=== PATIENT | female | born 1970 | race Caucasian/White ===

== ENCOUNTER 2017-11-01 16:59 | Emergency (ER) | payer MEDICAID, SELFPAY ==
[2017-11-01 17:01] VITALS: BP 132/84; PULSE 90; PULSE 98; RESP 18; TEMP 36.9; O2SAT 97; BMI 25.7
[2017-11-01 17:11] VITALS: BMI 25.7
--- NOTE | 2017-11-01 17:13 | XR_ITS ---
XR chest portable HISTORY: ITS.REASON: chest pain ORDERING PHYSICIAN: Kati Richards MD PATIENT AGE: 47 years COMPARISON: To 717 FINDINGS: The cardiomediastinal silhouette and pulmonary vascularity are within normal limits. The lungs are clear without infiltrates, suspicious nodules, or pleural effusions. No acute bony abnormalities. IMPRESSION: Negative chest, no acute finding
[2017-11-01 17:25] LABS: Basophils # 0.1 K/mm3 (0-0.2); Basophils % 0.8 % (0.1-2.0); Eosinophils # 0.1 K/mm3 (0.0-0.4); Eosinophils % 1.4 % (0.1-12.0); Hematocrit 45.7 % (37.0-47.0); Hemoglobin 15.6 g/dL (12.2-16.2); Lymphocytes # 2.8 K/mm3 (0.7-4.5); Lymphocytes % 26.8 K/mm3 (10-50); Mean Corpuscular HGB Conc 34.1 g/dL (31.8-35.4); Mean Corpuscular Hemoglobin 31.4 pg (27.0-31.2); Mean Corpuscular Volume 92.1 fl (81-99); Mean Platelet Volume 7.5 fl (7.4-10.4); Monocytes # 0.6 K/mm3 (0.1-1.0); Monocytes % 6.2 % (1.7-9.3); Neutrophils # 6.7 K/mm3 (1.8-7.8); Neutrophils % 64.8 % (37.0-80.0); Platelet Count 385 K/mm3 (142-424); Red Blood Count 4.97 M/mm3 (4.20-5.40); Red Cell Distribution Width 12.2 % (11.5-17.5); White Blood Count 10.4 K/mm3 (4.8-10.8)
--- NOTE | 2017-11-01 17:33 | HMH.EDGENADL ---
ED Disposition Clinical Impression: Atypical chest pain Disposition: Home, Self-Care Condition on Discharge: Good Instructions: DI for Atypical Chest Pain Additional Instructions: See Dr. Rodriguez for follow up in one to two days. - Critical Care Critical Care Time: No Attestation: On , the high probability of a clinically significant, sudden or life threatening deterioration of the following system(s) required my full and direct attention, intervention and personal management. The time I documented below is in addition to time spent performing reported procedures but includes the following listed in this critical care notation. Medical Decision Making Vital Signs: 11/01/17 17:01 11/01/17 17:46 Temperature 98.5 F Temperature Source Oral Pulse Rate 98 H Pulse Rate [Right Brachial] 90 84 Respiratory Rate 18 16 Blood Pressure [Right Arm] 132/84 107/72 Blood Pressure Mean [Right Arm] 100 83 Blood Pressure Source [Right Arm] Automatic Cuff Automatic Cuff Blood Pressure Position [Right Arm] Supine Supine 02 Sat by Pulse Oximetry 97 97 Oxygen Delivery Method Room Air Room Air - Lab Data Lab Results 11/01/17 17:20: Sodium 141, Potassium 3.5, Chloride 103, Carbon Dioxide 27, Anion Gap 14.5, BUN 15, Creatinine 1.03 H, Estimated Creat Clear 74, Estimated GFR 58 L, Est GFR ( Amer) 70, Glucose 66 L, Calcium 9.0, Total Bilirubin 0.4, AST 19, ALT 32, Alkaline Phosphatase 69, Total Creatine Kinase 225 H, CK-MB (CK-2) 1.1, CK-MB (CK-2) Rel Index 0.5, Troponin I < 0.02, Total Protein 8.5 H, Albumin 4.4, Globulin 4.1 H, Albumin/Globulin Ratio 1.1 11/01/17 18:55: Troponin I < 0.02 11/01/17 : WBC 10.4, RBC 4.97, Hgb 15.6, Hct 45.7, MCV 92.1, MCH 31.4 H, MCHC 34.1, RDW 12.2, Plt Count 385, MPV 7.5, Neut % (Auto) 64.8, Lymph % (Auto) 26.8, Dade % (Auto) 6.2, Eos % (Auto) 1.4, Baso % (Auto) 0.8, Neut # (Auto) 6.7, Lymph # (Auto) 2.8, [place] # (Auto) 0.6, Eos # (Auto) 0.1, Baso # (Auto) 0.1 11/01/17 : Influenza Type A Ag Negative, Influenza Type B Ag Negative Result diagrams: 11/01/17 Unknown 11/01/17 17:20 Orders (Tests/Meds): ED MEDICATIONS Discontinued Medications Generic Name Dose Route Start Last Admin Trade Name Freq PRN Reason Stop Dose Admin Ondansetron HCl 4 mg 11/01/17 19:49 11/01/17 19:52 Zofran 4mg/2ml Vial IV 11/01/17 19:50 4 mg ONCE ONE Administration ORDERS Category Date Time Status Chest XR -- portable [XR chest portable] Stat Exams 11/01/17 17:13 Taken EKG Request [ECG Request by /Petra] Stat Y 11/01/17 17:14 Ordered - Radiology Data #1 Image(s): Chest Image Reviewed: Yes I reviewed the patient's radiology image Preliminary Findings: Normal/NAD, No Infiltrates Seen, Normal Lung Inflation Cortez - ECG Data Tracing #1 I reviewed this ECG and interpreted as documented below: ECG initial impression date: 11/01/17 ECG initial impression time: 17:05 ECG normal with no acute: arrhythmias, ischemia, conduction abnormalities, chamber hypertrophy - Ricci Inquiry Pt receiving controlled substance: No Medical Decision Making Narrative: Second troponin normal; stable at d/c General Adult HPI - General Chief complaint: Chest Pain Stated complaint: chest pain Time Seen by Provider: 11/01/17 17:30 Mode of Arrival: EMS Limitations: No Limitations Description of Symptoms (Recalled from ER Triage Doc. by RN): Pt had flu like symptoms and was en route to [facility] and began to sweat and have left arm pain and chest tightness radiatig to the neck and shoulders. Pt called 911 - History of Present Illness HPI narrative: Patient states that she awoke this morning with flu symptoms. She had fever myalgias and diaphoresis. Currently experienced some substernal chest pain and went to the [facility]. At that point she was having left upper extremity left lower extremity neck and shoulder cramping as well as diaphoresis. Her syncope or palpitations. She
--- NOTE | 2017-11-01 17:36 | ED_ITS ---
ED Disposition Clinical Impression: Atypical chest pain Disposition: Home, Self-Care Condition on Discharge: Good Instructions: DI for Atypical Chest Pain Additional Instructions: See Dr. Rodriguez for follow up in one to two days. - Critical Care Critical Care Time: No Attestation: On , the high probability of a clinically significant, sudden or life threatening deterioration of the following system(s) required my full and direct attention, intervention and personal management. The time I documented below is in addition to time spent performing reported procedures but includes the following listed in this critical care notation. Medical Decision Making Vital Signs: 11/01/17 17:01 11/01/17 17:46 Temperature 98.5 F Temperature Source Oral Pulse Rate 98 H Pulse Rate [Right Brachial] 90 84 Respiratory Rate 18 16 Blood Pressure [Right Arm] 132/84 107/72 Blood Pressure Mean [Right Arm] 100 83 Blood Pressure Source [Right Arm] Automatic Cuff Automatic Cuff Blood Pressure Position [Right Arm] Supine Supine 02 Sat by Pulse Oximetry 97 97 Oxygen Delivery Method Room Air Room Air - Lab Data Lab Results 11/01/17 17:20: Sodium 141, Potassium 3.5, Chloride 103, Carbon Dioxide 27, Anion Gap 14.5, BUN 15, Creatinine 1.03 H, Estimated Creat Clear 74, Estimated GFR 58 L, Est GFR ( Amer) 70, Glucose 66 L, Calcium 9.0, Total Bilirubin 0.4, AST 19, ALT 32, Alkaline Phosphatase 69, Total Creatine Kinase 225 H, CK- MB (CK-2) 1.1, CK-MB (CK-2) Rel Index 0.5, Troponin I < 0.02, Total Protein 8.5 H, Albumin 4.4, Globulin 4.1 H, Albumin/Globulin Ratio 1.1 11/01/17 18:55: Troponin I < 0.02 11/01/17 : WBC 10.4, RBC 4.97, Hgb 15.6, Hct 45.7, MCV 92.1, MCH 31.4 H, MCHC 34.1, RDW 12.2, Plt Count 385, MPV 7.5, Neut % (Auto) 64.8, Lymph % (Auto) 26.8 , [place] % (Auto) 6.2, Eos % (Auto) 1.4, Baso % (Auto) 0.8, Neut # (Auto) 6.7, Lymph # (Auto) 2.8, [place] # (Auto) 0.6, Eos # (Auto) 0.1, Baso # (Auto) 0.1 11/01/17 : Influenza Type A Ag Negative, Influenza Type B Ag Negative Result diagrams: 11/01/17 Unknown 11/01/17 17:20 Orders (Tests/Meds): ED MEDICATIONS Discontinued Medications Generic Name Dose Route Start Last Admin Trade Name Freq PRN Reason Stop Dose Admin Ondansetron HCl 4 mg 11/01/17 19:49 11/01/17 19:52 Zofran 4mg/2ml Vial IV 11/01/17 19:50 4 mg ONCE ONE Administration ORDERS Category Date Time Status Chest XR -- portable [XR chest portable] Stat Exams 11/01/17 17:13 Taken EKG Request [ECG Request by /Petra] Stat Y 11/01/17 17:14 Ordered - Radiology Data #1 Image(s): Chest Image Reviewed: Yes I reviewed the patient's radiology image Preliminary Findings: Normal/NAD, No Infiltrates Seen, Normal Lung Inflation Cortez - ECG Data Tracing #1 I reviewed this ECG and interpreted as documented below: ECG initial impression date: 11/01/17 ECG initial impression time: 17:05 ECG normal with no acute: arrhythmias, ischemia, conduction abnormalities, chamber hypertrophy - Ricci Inquiry Pt receiving controlled substance: No Medical Decision Making Narrative: Second troponin normal; stable at d/c General Adult HPI - General Chief complaint: Chest Pain Stated complaint: chest pain Time Seen by Provider: 11/01/17 17:30 Mode of Arrival: EMS Limitations: No Limitation
--- NOTE | 2017-11-01 17:42 | PC.NURSE ---
FLU SWAB OBTAINED AND SENT TO LAB VIA TUBE SYSTEM
[2017-11-01 17:46] VITALS: BP 107/72; PULSE 84; RESP 16; O2SAT 97
[2017-11-01 17:50] LABS: Anion Gap 14.5 mEq/L (5-15); Blood Urea Nitrogen 15 mg/dL (7-18); CKMB Relative Index 0.5 U/L (0-4.0); Carbon Dioxide 27 mmol/L (21.0-32.0); Chloride 103 mmol/L (98-107); Creatine Kinase 225 U/L (26-192); Creatine Kinase MB 1.1 mg/ml (0.0-3.6); Creatinine,Serum 1.03 mg/dL (0.55-1.02); Potassium 3.5 mmoL/L (3.5-5.1); Sodium 141 mmol/L (136-145); Troponin I < 0.02 ng/ml (0.00-0.06)
[2017-11-01 17:51] LABS: Alanine Aminotransferase 32 U/L (12-78); Albumin Level 4.4 gm/dL (3.4-5.0); Albumin/Globulin Ratio 1.1 (1.1-1.8); Alkaline Phosphatase 69 U/L (46-116); Aspartate Amino Transferase 19 U/L (15-37); Bilirubin,Total 0.4 mg/dL (0.2-1.0); Creatinine Clearance Estimated 74 mL/min (0-300); Estimated Glomerular Filt Rate 58 ml/min (>60); GFR (African American) 70 ML/MIN (>60); Globulin 4.1 gm/dl (1.3-3.2); Glucose 66 mg/dL (74-106); Total Protein,Serum 8.5 gm/dL (6.4-8.2)
[2017-11-01 19:47] LABS: Troponin I < 0.02 ng/ml (0.00-0.06)
== END 2017-11-01 20:06 | disposition home or self-care (01) ==
PROVIDERS: Emergency Provider Emergency Medicine; Family Provider Emergency Medicine; PCP Emergency Medicine
DX: R07.89 Other chest pain (principal); R50.9 Fever, unspecified; I10 Essential (primary) hypertension; F17.210 Nicotine dependence, cigarettes, uncomplicated
CPT/HCPCS: 71045; 80053; 82550; 82553; 84484; 85025; 87275; 87276; 93005; 93041; 96374; 99283; J2405

== ENCOUNTER → 2017-11-23 11:24 | Outpatient (CLI) | payer MEDICAID, SELFPAY ==
[2017-11-23 11:55] LABS: Anion Gap 9.2 mEq/L (5-15); Blood Urea Nitrogen 10 mg/dL (7-18); Carbon Dioxide 30 mmol/L (21.0-32.0); Chloride 106 mmol/L (98-107); Estimated Glomerular Filt Rate 78 ml/min (>60); GFR (African American) 94 ML/MIN (>60); Glucose 94 mg/dL (74-106); Potassium 4.2 mmoL/L (3.5-5.1); Sodium 141 mmol/L (136-145)
[2017-11-23 12:11] LABS: Basophils % 0.5 % (0.1-2.0); Eosinophils # 0.2 K/mm3 (0.0-0.4); Eosinophils % 3.1 % (0.1-12.0); Hematocrit 36.3 % (37.0-47.0); Hemoglobin 12.4 g/dL (12.2-16.2); Lymphocytes # 2.5 K/mm3 (0.7-4.5); Lymphocytes % 37.6 K/mm3 (10-50); Mean Corpuscular HGB Conc 34.2 g/dL (31.8-35.4); Mean Corpuscular Hemoglobin 31.1 pg (27.0-31.2); Mean Corpuscular Volume 91.1 fl (81-99); Monocytes # 0.3 K/mm3 (0.1-1.0); Neutrophils # 3.6 K/mm3 (1.8-7.8); Neutrophils % 54.7 % (37.0-80.0); Platelet Count 297 K/mm3 (142-424); Red Blood Count 3.99 M/mm3 (4.20-5.40); Red Cell Distribution Width 12.1 % (11.5-17.5); White Blood Count 6.6 K/mm3 (4.8-10.8)
[2017-11-23 13:24] LABS: Chol/HDL Ratio 3.5 (1-3.5); Cholesterol 185 mg/dL (140-200); Free T4 (Free Thyroxine) 0.85 ng/dl (0.76-1.46); HDL Cholesterol 53 mg/dL (29-89); LDL Cholesterol 109 mg/dL (0-130); Thyroid Stimulating Hormone 0.48 uIU/ml (0.358-3.740); Triglycerides 116 mg/dL (30-200); VLDL Cholesterol 23 mg/dL (0-40)
[2017-11-23 16:04] LABS: Hemoglobin A1C 5.3 % (0.0-7.0)
[2017-11-24 17:27] LABS: Vitamin D 25 Hydroxy 15.2 ng/mL (30.0-100.0)
== END ==
PROVIDERS: Internal Medicine Cardiovascular Disease; Visit Provider Nurse Practitioner Family
DX: R06.00 Dyspnea, unspecified (principal); I20.8 Other forms of angina pectoris; E78.5 Hyperlipidemia, unspecified; F17.200 Nicotine dependence, unspecified, uncomplicated; Z82.49 Family history of ischemic heart disease and other diseases of the circulatory system; I10 Essential (primary) hypertension; R53.83 Other fatigue
CPT/HCPCS: 36415; 80048; 80061; 82652; 83036; 84439; 84443; 85025

== ENCOUNTER 2017-12-05 07:31 | Day surgery (SDC) | payer MEDICAID, SELFPAY ==
[2017-12-05] VITALS (14 sets, daily range): BP systolic 91–115; BP diastolic 52–64; PULSE 53–78; RESP 18–20; TEMP 36.7; O2SAT 95–98; BMI 28.5
--- NOTE | 2017-12-05 | IR_ITS ---
CARDIAC CATHETERIZATION DATE OF CATHETERIZATION:12/05/2017 8:24 AM PROCEDURES: 1. Left heart catheterization 2. Left ventriculogram 3. Selective coronary angiogram INDICATION FOR TEST: 1. Progressive angina pectoris 2. Recurrent visits to the emergency room or angina 3. Strong family history of coronary artery disease 4. Numerous risk factors for coronary artery disease Informed consent was obtained prior to the procedure. COMPLICATIONS: None ESTIMATED BLOOD LOSS: Less than 10 ml. TECHNIQUE: One percent lidocaine used to anesthetize the right anterior aspect of the wrist. The right radial artery was accessed via the Seldinger technique. A 6 Pakistani sheath was placed in the right radial artery. 2.5 mg of verapamil, 800 mcg of nitroglycerin and 5000 U Heparin were given through the arterial sheath. The trap catheter was also used to perform left heart catheterization and left ventriculography. At the end of the procedure the patient was transferred to the post-op holding area in stable condition for arterial sheath removal. ANGIOGRAPHIC RESULTS: 1. The left main artery has an ostial smooth 20% stenosis and a mid vessel 20% stenosis 2. The left anterior descending artery is proximally normal and then has a 30% smooth stenosis immediately adjacent to a first septal oil expert with remaining vessel normal 3. The circumflex artery is a dominant vessel and normal 4. The right coronary artery nondominant yet still large and normal 5. The MORENO ventriculogram reveals normal 65% 6. The left ventricular end-diastolic pressure 15 mmHg IMPRESSION: 1. Mild nonflow limiting coronary artery disease 2. Normal ejection fraction 3. Normal mildly elevated LVEDP PLAN: 1. Tobacco cessation 2. Treatment of endothelial dysfunction 3. Risk factor modification with a goal LDL less than 55
--- NOTE | 2017-12-05 08:10 | CA_ITS ---
PROCEDURE: 2-D M-mode and color Doppler study INDICATIONS FOR THE TEST: Chest pain X COPD Heart Murmur Tobacco SmokingX Palpitations Fatigue Syncope Edema Hypertension Diabetes Mellitus Rheumatic Fever SOBXDOE Obesity Hyperlipidemia Family History HD Additional History PATIENT INFORMATION HEIGHT: 64 WEIGHT:166 GENDER: Female B/P:65/60 2-D/M-MODE INTERPRETATION: 2-D MEASUREMENTS OBSERVED VALUES IN CMS Right Ventricular Dimension (RVDd) 1.7 Interventricular Septum (Thickness)(IVsd) .9 Left Ventricular Internal Dimensions(LVIDd) 5.1 Left Ventricular Posterior Wall (Thickness)(LVPWd) 1.1 Aortic Root 2.6 Aortic Cusp Separation 1.6 Left Atrial Dimensions (LAD) 3.1 2D 1. Left atrium is mildly enlarged, left ventricle is normal size, there is no concentric left ventricular hypertrophy, visually estimated ejection fraction 55% with no obvious regional wall motion abnormality. 2. The right atrium and right ventricle are mildly enlarged with normal contractility. 3. The aortic valve is minimally thickened and fibrosed. 4. The mitral and tricuspid valvular grossly normal. 5. The pulmonic valve is poorly visualized 6. No significant pericardial effusion noted. DOPPLER INTERROGATION: Doppler interrogation of the aortic, mitral and tricuspid valvular presence of mild mitral and tricuspid regurgitation, tricuspid regurgitant jet velocity is insufficient for calculation of the right ventricular systolic pressure, diastolic parameters are inconclusive. CONCLUSION: 1. Mildly enlarged left atrium, normal left ventricular size, visually estimated ejection fraction 55% with no obvious regional wall motion abnormality, diastolic parameters are inconclusive. 2. Mildly enlarged right ventricle with normal contractility. 3. Mild mitral and tricuspid regurgitation 4. No significant pericardial effusion noted.
[2017-12-05 08:11] LABS: Basophils # 0.1 K/mm3 (0-0.2); Basophils % 0.7 % (0.1-2.0); Eosinophils # 0.4 K/mm3 (0.0-0.4); Eosinophils % 3.5 % (0.1-12.0); Lymphocytes # 3.1 K/mm3 (0.7-4.5); Lymphocytes % 30.1 K/mm3 (10-50); Mean Corpuscular HGB Conc 34.1 g/dL (31.8-35.4); Mean Corpuscular Hemoglobin 31.4 pg (27.0-31.2); Mean Corpuscular Volume 92.1 fl (81-99); Mean Platelet Volume 7.1 fl (7.4-10.4); Monocytes # 0.4 K/mm3 (0.1-1.0); Monocytes % 3.9 % (1.7-9.3); Neutrophils # 6.4 K/mm3 (1.8-7.8); Neutrophils % 61.7 % (37.0-80.0); Platelet Count 333 K/mm3 (142-424); Red Blood Count 4.12 M/mm3 (4.20-5.40); Red Cell Distribution Width 12.1 % (11.5-17.5); White Blood Count 10.4 K/mm3 (4.8-10.8)
[2017-12-05 08:15] LABS: Anion Gap 10.8 mEq/L (5-15); Blood Urea Nitrogen 10 mg/dL (7-18); Carbon Dioxide 29 mmol/L (21.0-32.0); Chloride 105 mmol/L (98-107); Creatinine Clearance Estimated 111 mL/min (0-300); Creatinine,Serum 0.76 mg/dL (0.55-1.02); Estimated Glomerular Filt Rate 82 ml/min (>60); GFR (African American) 100 ML/MIN (>60); Glucose 100 mg/dL (74-106); Potassium 3.8 mmoL/L (3.5-5.1); Sodium 141 mmol/L (136-145)
== END 2017-12-05 12:41 | disposition home or self-care (01) ==
LOC: CATHLAB 07:32
PROVIDERS: Family Provider Emergency Medicine; PCP Emergency Medicine; Visit Provider Internal Medicine
DX: I20.9 Angina pectoris, unspecified (principal); Z82.49 Family history of ischemic heart disease and other diseases of the circulatory system; I10 Essential (primary) hypertension; E78.5 Hyperlipidemia, unspecified; R06.02 Shortness of breath; R06.00 Dyspnea, unspecified; R06.01 Orthopnea; F17.200 Nicotine dependence, unspecified, uncomplicated; Z83.3 Family history of diabetes mellitus; Z82.3 Family history of stroke
CPT/HCPCS: 80048; 85025; 93306; 93458; 99152; C1725; C1769; J1644; Q9967

== ENCOUNTER → 2021-01-01 15:45 | Outpatient (CLI) | payer BC, SELFPAY ==
--- NOTE | 2021-01-01 15:47 | MM_ITS ---
PROCEDURE: MM DIG SCREENING MAMM BI W/CAD Digital Breast Tomosynthesis Included CLINICAL INDICATION: SCREENING There is a history of breast cancer patient's mother diagnosed at age 52 COMPARISON: MG DMDXUL DIG MAMM-DX UNI-LT from 11/06/2014 MG DMSB DIG MAMM-SCREEN PATRICK W/CAD from 03/06/2017 MG DMDXUL DIG MAMM-DX UNI-LT W/CAD from 09/07/2017 TECHNIQUE: Standard CC and MLO images and 3D Tomosynthesis was obtained. R2 CAD reviewed. FINDINGS: Mild diffuse fibroglandular densities are seen throughout breasts. There a couple of benign-appearing microcalcifications breast. Is no suspicious lesion seen no suspicious microcalcifications. IMPRESSION: Mild diffuse breast density suspicious lesions BI-RAD Category: 2 Benign Finding(s) FOLLOW-UP: 1YR 1 Year Follow-up (A letter has been sent to the patient regarding results of the study.) Dictated by: Dr. Biju Ruvalcaba MD 01/08/2021 07:37 Dr. Biju Ruvalcaba MD in [place] 01/08/2021 07:37
== END ==
PROVIDERS: PCP Family Medicine Adult Medicine; Visit Provider Family Medicine Adult Medicine
DX: Z12.31 Encounter for screening mammogram for malignant neoplasm of breast (principal)
CPT/HCPCS: 77063; 77067

== ENCOUNTER → 2021-02-01 14:26 | Outpatient (CLI) | payer BC, SELFPAY ==
[2021-02-01 16:42] LABS: Ferritin 43.2 ng/ml (6.24-137)
== END ==
PROVIDERS: Visit Provider Nurse Practitioner Family
DX: E83.10 Disorder of iron metabolism, unspecified (principal); G25.81 Restless legs syndrome
CPT/HCPCS: 36415; 82728

== ENCOUNTER → 2021-02-24 13:51 | Outpatient (CLI) | payer BC, SELFPAY ==
--- NOTE | 2021-02-24 13:53 | US_ITS ---
PROCEDURE: US KIDNEY CLINICAL INDICATION: GROSS HEMATURIA COMPARISON: No exams were available for comparison FINDINGS: The right kidney is 10 x 5 x 6 cm. No hydronephrosis, cortical thinning, or renal mass or perinephric fluid collection is evident. The left kidney is 10 x 5 x 5 cm. No hydronephrosis, cortical thinning, or renal mass or perinephric fluid collection is evident. IMPRESSION: Unremarkable bilateral renal ultrasound Dictated by: Howard Sweet MD 02/24/2021 17:22 Howard Sweet MD in [facility] 02/24/2021 17:22
== END ==
PROVIDERS: PCP Family Medicine Adult Medicine; Visit Provider Nurse Practitioner Family
DX: R31.0 Gross hematuria (principal); R30.0 Dysuria
CPT/HCPCS: 76770

== ENCOUNTER → 2021-03-02 08:09 | Outpatient (CLI) | payer BC, SELFPAY | PROVIDERS: Visit Provider Nurse Practitioner Family | DX: Z01.812 Encounter for preprocedural laboratory examination (principal); Z20.822 Contact with and (suspected) exposure to COVID-19 | CPT/HCPCS: U0003 ==

== ENCOUNTER → 2021-03-04 19:50 | Outpatient (CLI) | payer BC, SELFPAY | PROVIDERS: Visit Provider Nurse Practitioner Family | DX: G47.30 Sleep apnea, unspecified (principal); R06.83 Snoring; F19.11 Other psychoactive substance abuse, in remission | CPT/HCPCS: 95810 ==

== ENCOUNTER → 2021-04-08 09:54 | Outpatient (CLI) | payer BC, SELFPAY | PROVIDERS: PCP Nurse Practitioner Family; Visit Provider Nurse Practitioner Family | DX: M54.31 Sciatica, right side (principal) ==

== ENCOUNTER → 2021-05-24 08:26 | Outpatient (CLI) | payer BC, SELFPAY ==
[2021-05-24 09:16] LABS: Basophils # 0.1 K/mm3 (0-0.2); Eosinophils # 0.1 K/mm3 (0.0-0.4); Eosinophils % 1.6 % (0.1-12.0); Hematocrit 37.6 % (37.0-47.0); Lymphocytes # 2.2 K/mm3 (0.7-4.5); Lymphocytes % 41.1 % (10-50); Mean Corpuscular HGB Conc 34.7 g/dL (31.8-35.4); Mean Corpuscular Hemoglobin 31.2 pg (27.0-31.2); Mean Corpuscular Volume 89.8 fl (81-99); Mean Platelet Volume 7.8 fl (7.4-10.4); Monocytes # 0.3 K/mm3 (0.1-1.0); Neutrophils # 2.8 K/mm3 (1.8-7.8); Neutrophils % 51.3 % (37.0-80.0); Platelet Count 353 K/mm3 (142-424); Red Blood Count 4.18 M/mm3 (4.20-5.40); Red Cell Distribution Width 13.2 % (11.5-17.5); White Blood Count 5.4 K/mm3 (4.8-10.8)
[2021-05-24 09:41] LABS: Total Iron Binding Capacity 298 ug/dL (265-497)
[2021-05-24 10:04] LABS: Thyroid Stimulating Hormone 0.24 uIU/mL (0.465-4.68)
[2021-05-24 10:39] LABS: Vitamin B12 453 pg/mL (239-931)
== END ==
PROVIDERS: Visit Provider Specialist
DX: D64.9 Anemia, unspecified (principal); I10 Essential (primary) hypertension; Z20.822 Contact with and (suspected) exposure to COVID-19
CPT/HCPCS: 36415; 82607; 82746; 83550; 84443; 85025; U0003

== ENCOUNTER 2021-05-26 07:46 | Day surgery (SDC) | payer BC, SELFPAY ==
[2021-05-03 14:07] VITALS: BMI 36.0
[2021-05-26 08:10] VITALS: BP 176/98; PULSE 99; RESP 18; TEMP 36.1; O2SAT 96
--- NOTE | 2021-05-26 08:12 | P.PN_ITS ---
[facility] Anesthesia Checklist - Patient Identification Patient Identification: Arm Band - Structural Data Admitted From: Home Planned Operative Procedure/s: Colonoscopy Consent for Planned Operative Procedure(s) Verified: Yes - Airway Assessment C-Spine Mobility Assessed: Yes TMJ Mobility Assessed: Yes Dentition: Poor Dentition - Neurological Assessment Level of Consciousness: Awake Hx Seizures: No Numbness or tingling in extremities: No - Anesthesia Plan Anesthesia Risk discussed: Yes Anesthesia Plan: Verified ASA Class: III Anesthesia Type: MAC [facility] History I have reviewed the patient's past medical history: Yes Medical History: Reports:: Anxiety, Asthma, Depression, Gastroesophageal Reflux Disease(GERD), Hypertension, Migraine, Palpitations Denies:: Cancer, Diabetes Mellitus Type 1, Diabetes Mellitus Type 2, Internal Pacemaker, MRSA, Seizures *Have you ever received a pneumonia vaccine?: Yes *Have you received a flu vaccine this season?: No Other Medical History: Reports: Fibromyalgia Anesthesia experience/problems:: None Laterality Cases: Right: Total Hip Replacement Other Surgeries: Yes: No Previous Surgery, Appendectomy, Cardiac Catheterization, Cholecystectomy, Colonoscopy, , Tubal Ligation, Other. No: Pacemaker Amputation: No Fractures: Yes (HIP) - *Social History Last grade of school completed: Some college Smoking Status: Former smoker # Packs/Day (cigarettes): 1 Alcohol Intake: never Alcohol Intake Frequency:: other Substance Use Type: former substance user, marijuana, heroin, crack/cocaine *Occupational Status:: employed Housing: house Household Members: none *Travel in the last 8 weeks: None - Psychiatric History Pschychiatric History:: Reports:: Anxiety, Depression Family Hx:: Stroke, Heart Attack, Diabetes, Cancer, Hypertension, Hyperlipidemia, Asthma, Coronary Artery Disease
[2021-05-26 08:43] LABS: HCG Qualitative, Serum Negative (Negative)
[2021-05-26 08:49] VITALS: O2SAT 96
--- NOTE | 2021-05-26 09:28 | P.PCN_ITS ---
- Procedure: Date: 05/26/21 Patient Date of :: 1970 Procedure Performed:: Total colonoscopy to terminal ileum with polypectomy by biopsy and snare Indications:: Patient is a 51-year-old female on Suboxone referred by Princess Guo from [facility] for colonoscopy. She states that she was undergoing routine evaluation was found to have reportedly evidence of iron deficiency anemia. She denies any obvious rectal bleeding. She has had prior colonoscopy about 10 years ago. I do have record of prior colonoscopy in [address] Melo at this institution. Patient describes symptoms of nausea and constipation. She states that she often goes 10 days without a bowel movement. She does state that she has had multiple surgeries for adhesions and scar tissue. She had seen neurology for her sleep apnea who advocated a colonoscopy as well. Performing Provider:: Florentino Zepeda MD Referring Provider:: Princess Guo Sedation:: MAC sedation Procedure:: Patient was taken to endoscopy procedure room. She was positioned in lateral decubitus position. Adequate intravenous sedation was achieved with anesthesia titration of propofol. Digital examination was performed which was unremarkable. Variable stiffness Olympus colonoscope was inserted via the anus. Was advanced to the cecum with some minimal difficulty due to floppiness and redundancy of the sigmoid colon. Colonic preparation was fair but adequate visualization was achieved with irrigation and suctioning. Ileocecal valve and appendiceal orifice were identified. Colonoscope was advanced short distance into the terminal ileum which appeared grossly normal. Colonoscope was slowly withdrawn through the colon. She did require irrigation and suctioning to allow for decent visualization. Near the hepatic flexure there was a possible early diminutive polyp removed with cold biopsy forceps. In the descending colon there was a diminutive polyp removed with cold biopsy forceps. In the rectosigmoid region there were several small hyperplastic appearing polyps which were removed with cold biopsy forceps. In the rectum there was a sessile small polyp removed with cold cutting snare. Retroflexion within the rectum revealed nonbleeding internal hemorrhoids. Colonoscope was withdrawn. Findings:: Fair colonic preparation Diminutive polyps as noted above Nonbleeding internal hemorrhoids Recommendations:: No source on colonoscopic evaluation to explain iron deficiency anemia. This may be metabolic/dietary. Consideration could be given for upper endoscopy if felt to be indicated. Recommend repeat colonoscopy 3 to 5 years pending pathology Complications:: None immediately apparent Estimated blood obtained (mL): 2
[2021-05-26 09:31] VITALS: BP 132/86; PULSE 84; RESP 16; TEMP 36.7; O2SAT 94
[2021-05-26 09:41] VITALS: BP 143/79; PULSE 84; RESP 16; O2SAT 98
[2021-05-26 09:51] VITALS: BP 138/86; PULSE 74; RESP 16; O2SAT 98
[2021-05-26 10:01] VITALS: BP 137/82; PULSE 70; RESP 16; O2SAT 95
== END 2021-05-26 10:01 | disposition home or self-care (01) ==
LOC: OUTP 07:47
PROVIDERS: PCP Nurse Practitioner Family; Visit Provider Surgery
PROC: 0DJD8ZZ Inspection of Lower Intestinal Tract, Via Natural or Artificial Opening Endoscopic (ICD-10-PCS; CPT 45380; principal; 2021-05-26 09:00)
DX: K63.5 Polyp of colon (principal); K64.0 First degree hemorrhoids; F41.9 Anxiety disorder, unspecified; J45.909 Unspecified asthma, uncomplicated; F32.9 Major depressive disorder, single episode, unspecified; K21.9 Gastro-esophageal reflux disease without esophagitis; I10 Essential (primary) hypertension; G43.909 Migraine, unspecified, not intractable, without status migrainosus; R00.2 Palpitations; Z87.891 Personal history of nicotine dependence; Z88.8 Allergy status to other drugs, medicaments and biological substances; Z79.899 Other long term (current) drug therapy
CPT/HCPCS: 45380; 84703; J2704

== ENCOUNTER → 2021-05-27 10:39 | Outpatient (POV) | payer BC, SELFPAY ==
[2021-05-27 11:04] VITALS: BP 172/90; PULSE 84; RESP 18; O2SAT 96; BMI 36.0
--- NOTE | 2021-05-27 11:39 | HMH.PMCON ---
Assessment and Plan (1) Low back pain Status: Chronic Qualifiers: Chronicity: chronic Back pain laterality: bilateral Category: Medical Code(s): M54.5 - Low back pain (2) Sacroiliitis Status: Chronic Category: Medical Code(s): M46.1 - Sacroiliitis, not elsewhere classified - Assessment and plan all Dx Assessment and Plan for all problems:: Low back pain/bilateral lower extremity pain?patient is tender to palpation to her bilateral SI joints with a positive Shane's, compression, distraction test. We will schedule her for bilateral SI joint injections to see if she gets relief. She has tried physical therapy, home stretching, and anti-inflammatories with no significant relief. If the patient does not get relief, we will schedule her for a lumbar epidural steroid injection at L5-S1. Per the patient's MRI report, L5-S1 does have a concentric disc bulge with a small posterior central canal protrusion, moderate articular facet disease. We will follow-up with patient after her injection to reevaluate symptoms. Risks and benefits of the procedure have been explained to the patient. Patient would like to proceed with the procedure. Possible side effects of corticosteroids have been discussed with the patient. Patient has been instructed to contact the clinic with any concerns before the next appointment. Dr. Lin has reviewed this note and agrees with this plan of care. This note was dictated using voice recognition software and make contain errors or omissions. HPI - Data of Consult Patient: new to practice Consult date: 05/27/21 Requesting Physician: Jagruti Byrne APRN Primary Care Provider: Princess Guo APRN - Consult Narrative Reason for consult: Low back pain, right leg pain History of present illness: Ms. Jones is a 51 year old female who presents today for consultation for low back pain with radiation into her bilateral lower extremities. Patient says that she has had pain in her low low back for many years. She did undergo hip replacement in 2008. She did have pain to her low back prior to her hip replacement, however, reports her pain improved somewhat after the surgery. Unfortunately, over time, the pain returned and progressively worsened. Today, she has pain in her low back with radiation into her bilateral buttock, bilateral legs, bilateral hips and groin. The pain is intermittently radiating into the bilateral feet and bilateral groin. She says that her pain is worse when she is sitting. She is tender to palpation to the area. Walking also worsens her pain. She does rate her pain a 7 out of 10. She has tried anti-inflammatories in the past with no relief. She has also tried physical therapy for greater than 6 weeks with no relief. She does have an MRI of her lumbar spine that was performed May 06, 2021. Patient has not gotten any significant relief with conservative therapies. She does continue with home stretching. CC: Jagruti Byrne APRN [facility] History I have reviewed the patient's past medical history: Yes Medical History: Reports:: Anxiety, Asthma, Depression, Gastroesophageal Reflux Disease(GERD), Hypertension, Migraine, Palpitations Denies:: Cancer, Diabetes Mellitus Type 1, Diabetes Mellitus Type 2, Internal Pacemaker, MRSA, Seizures *Have you ever received a pneumonia vaccine?: No *Have you received a flu vaccine this season?: No Other Medical History: Reports: Fibromyalgia Laterality Cases: Right: Total Hip Replacement Other Surgeries: Yes: No Previous Surgery, Appendectomy, Cardiac Catheterization, Cholecystectomy, Colonoscopy, , Tubal Ligation, Other. No: Pacemaker Amputation: No Fractures: Yes (HIP) - *Social History Smoking Status: Former smoker # Packs/Day (cigarettes): 1 Alcohol Intake: never Alcohol Intake Frequency:: other Substance Use Type: former substance user, marijuana, heroin, crack/cocaine *Occupational Status:: unemployed Housing: h
== END ==
PROVIDERS: PCP Nurse Practitioner Family; Visit Provider Clinical Nurse Specialist Family Health
DX: M54.5 Low back pain (principal); M46.1 Sacroiliitis, not elsewhere classified
CPT/HCPCS: 99202; G0463

== ENCOUNTER 2021-06-18 10:40 | Day surgery (SDC) | payer BC, SELFPAY ==
[2021-06-18 10:43] VITALS: BP 133/86; PULSE 75; RESP 18; TEMP 36.2; O2SAT 98; BMI 36.0
[2021-06-18 11:03] VITALS: BP 130/85; PULSE 82; RESP 18; O2SAT 98
[2021-06-18 11:10] VITALS: BP 153/90; PULSE 83; RESP 18; O2SAT 97
--- NOTE | 2021-06-18 11:47 | P.PCN_ITS ---
- Procedure Date: 06/18/21 Time: 11:48 Anesthesiologist:: Owen Lin MD Complications:: None Pre-procedure Diagnosis:: Sacroiliitis Post-procedure Diagnosis:: Same Indications for Procedure:: Patient is a pleasant 51-year-old white female who we are treating for bilateral hip pain. She is tender over both SI joints. She does have a positive Shane's test bilaterally. She is positive Aidee test bilaterally. She is positive SI joint compression test bilaterally. She has a positive distraction test bilaterally. We will do bilateral SI joint injections under fluoroscopy today t o help her with her pain symptoms. Procedure Details:: B/L SI joint injection under fluoroscopy Informed consent was obtained and the risks and benefits of the procedure was explained to the patient. The patient was taken to the procedure room and placed prone on the procedure table. The patient was prepped using ChloraPrep. The skin and subcutaneous tissues overlying the SI joints were anesthetized using lidocaine. I placed a 22-gauge needle first in the left SI joint and second in the right SI joint. Needle placement was confirmed with dye. After this we injected 5 mL bupivacaine 0.25% and Depo-Medrol 40 mg into each SI joint. Patient tolerated the procedure well with no complication. Plan and Disposition:: We will follow-up with her in 2 weeks. Will reevaluate symptoms at that time.
[2021-06-18 12:09] VITALS: BP 129/67; PULSE 83; RESP 18; TEMP 36.2; O2SAT 96
== END 2021-06-18 11:30 | disposition home or self-care (01) ==
LOC: SC.PAINP 10:42
PROVIDERS: PCP Nurse Practitioner Family; Visit Provider Anesthesiology
DX: M46.1 Sacroiliitis, not elsewhere classified (principal); G43.909 Migraine, unspecified, not intractable, without status migrainosus; I10 Essential (primary) hypertension; J45.909 Unspecified asthma, uncomplicated; K21.9 Gastro-esophageal reflux disease without esophagitis; M79.18 Myalgia, other site; F41.9 Anxiety disorder, unspecified; F32.9 Major depressive disorder, single episode, unspecified; Z87.891 Personal history of nicotine dependence
CPT/HCPCS: 27096; G0260; J1040; Q9966

== ENCOUNTER → 2021-07-15 14:11 | Outpatient (POV) | payer BC, SELFPAY ==
[2021-07-15 14:24] VITALS: BP 151/90; PULSE 80; RESP 18; O2SAT 97; BMI 35.2
--- NOTE | 2021-07-15 14:35 | HMH.PAINSOAP ---
[facility] Pain Management SOAP Note Subjective:: Patient is a 51-year-old white female who presents today for follow-up after bilateral SI joint injections. Patient is having pain in her low back with radiation into bilateral buttock, hips, groin, and legs. The pain does stop at the knees. Patient says she got minimal relief with her injections bilateral SI injections. She rates her pain a 7 out of 10 today. She says that she may have gotten 2 to 3 days of relief but the pain did return immediately. She got less than 50% relief when the injections were working. She has tried anti-inflammatories in the past with little relief. She has taken diclofenac. Patient is on Suboxone and is unable to take oral opiates. She has had imaging of her lumbar spine. Patient's pain has not relieved with physical therapy for more than 6 weeks or home stretching. She does continue using ice and heat therapies. The patient says she does not have pain that is worsened by leaning forward or with extension at waist. She does, however, have worsening pain with sitting for prolonged periods. She also has pain with heavy lifting. She does work long hours and says that this worsens her pain. Review of Systems General: No recent weight changes, no fever, no sleep disturbances Respiratory: No cough, no shortness of air, no recurring pulmonary infections Cardiovascular/peripheral vascular: No chest pain, no palpitations, no edema, no shortness of breath Gastrointestinal: No new onset incontinence, normal bowel movements reported Genitourinary: No new onset incontinence Musculoskeletal: Low back pain with radiation into bilateral buttock, groin, legs stopping at knee, worse with prolonged sitting Psychiatric: [Normal mood/affect] Neurological: [Denies weakness in extremities], [denies balance issues] Objective:: Physical exam General: Alert and oriented x3, no acute distress, pleasant and cooperative Lungs: Respirations even and unlabored, symmetrical chest expansion Eyes: PERRL Musculoskeletal: Flexion and extension of lumbar [spine] somewhat guarded secondary to pain, [antalgic gait noted] Neurological: Speech clear, no gross sensory deficit Assessment:: Degenerative disc disease lumbar spine with lumbar radiculopathy symptoms Plan:: We will schedule the patient for lumbar epidural steroid injection at L4-L5 area. She did try bilateral SI joint injections with minimal relief. She continues with home stretching and has undergone physical therapy for greater than 6 weeks. She did not get any relief. She has tried diclofenac. We did discuss changing to Celebrex to see if this gives her any relief. We will change the patient to Celebrex 200 mg 1 tablet p.o. daily. The patient is not on any anticoagulation therapy. She is not diabetic. This will be the patient's #1 lumbar epidural steroid injection at the L4-L5 area. Possible side effects of corticosteroids have been discussed with the patient. Risks and benefits of the procedure have been explained to the patient. Patient would like to proceed with the procedure. Patient has been instructed to contact the clinic with any concerns before the next appointment. Dr. Lin has reviewed this note and agrees with this plan of care. This note was dictated using voice recognition software and make contain errors or omissions. [facility] History I have reviewed the patient's past medical history: Yes Medical History: Reports:: Anxiety, Asthma, Depression, Gastroesophageal Reflux Disease(GERD), Hypertension, Migraine, Palpitations Denies:: Cancer, Diabetes Mellitus Type 1, Diabetes Mellitus Type 2, Internal Pacemaker, MRSA, Seizures *Have you ever received a pneumonia vaccine?: No *Have you received a flu vaccine this season?: No Other Medical History: Reports: Fibromyalgia Laterality Cases: Right: Total Hip Replacement Other Surgeries: Yes: No Previous Surgery, Appendectomy, Cardiac Catheterization, Chol
== END ==
PROVIDERS: Visit Provider Clinical Nurse Specialist Family Health
DX: M51.16 Intervertebral disc disorders with radiculopathy, lumbar region (principal)
CPT/HCPCS: 99212; G0463

== ENCOUNTER 2021-08-06 11:14 | Day surgery (SDC) | payer BC, SELFPAY ==
[2021-08-06 11:34] VITALS: BP 118/80; PULSE 75; RESP 18; TEMP 36.6; O2SAT 98; BMI 36.3
[2021-08-06 12:12] VITALS: BP 146/83; PULSE 81; RESP 18; O2SAT 98
[2021-08-06 12:13] VITALS: BP 144/80; PULSE 71; RESP 18; O2SAT 97
--- NOTE | 2021-08-06 12:14 | HMH.PMPROC ---
- Procedure Date: 08/06/21 Time: 12:14 Anesthesiologist:: Owen Lin MD Complications:: None Pre-procedure Diagnosis:: Degenerative disc disease of lumbar spine with lumbar radiculopathy symptoms Post-procedure Diagnosis:: Same Indications for Procedure:: Patient is a pleasant 51-year-old white female who we are treating for low back pain with lumbar radiculopathy symptoms. She did not get much relief from bilateral SI joint injections. We will do lumbar epidural steroid injection under fluoroscopy today to see if this gives her better relief of her low back pain bilateral hip pain and leg pain. Procedure Details:: Informed consent was obtained and the risk and benefits of the procedure was explained to the patient. The patient was taken to the procedure room. The patient was placed prone on the procedure table. The patient was prepped and draped in sterile fashion. C-arm fluoroscopy was used to view the lumbar spine. Skin and subcutaneous tissues were anesthetized using lidocaine. I placed an 18-gauge epidural needle and advanced into the L5-S1 interspace using fluoroscopic guidance and [id number] to air. After confirmation of needle placement in the epidural space with dye I injected 2 mL of lidocaine 1.5% with Depo-Medrol 80 mg. Patient tolerated the procedure well with no complications. Plan and Disposition:: We will follow-up with her in 2 weeks. Will reevaluate symptoms at that time.
[2021-08-06 12:25] VITALS: BP 133/89; PULSE 78; RESP 20; O2SAT 97
== END 2021-08-06 12:25 | disposition home or self-care (01) ==
LOC: SC.PAINP 11:15
PROVIDERS: PCP Nurse Practitioner Family; Visit Provider Anesthesiology
DX: M51.16 Intervertebral disc disorders with radiculopathy, lumbar region (principal); G43.909 Migraine, unspecified, not intractable, without status migrainosus; I10 Essential (primary) hypertension; J45.909 Unspecified asthma, uncomplicated; K21.9 Gastro-esophageal reflux disease without esophagitis; M79.18 Myalgia, other site; F32.9 Major depressive disorder, single episode, unspecified; F41.9 Anxiety disorder, unspecified; Z72.0 Tobacco use; E78.5 Hyperlipidemia, unspecified; Z88.8 Allergy status to other drugs, medicaments and biological substances
CPT/HCPCS: 62323; J1040; Q9966

== ENCOUNTER → 2021-09-02 11:32 | Outpatient (POV) | payer BC, SELFPAY ==
[2021-09-02 11:53] VITALS: BP 125/81; PULSE 89; RESP 18; O2SAT 96; BMI 36.0
--- NOTE | 2021-09-02 11:55 | HMH.PAINSOAP ---
[facility] Pain Management SOAP Note Subjective:: Patient is a 51-year-old white female who presents today for follow-up after a lumbar epidural steroid injection. The patient got minimal relief with the injection. She says for 3 days she had up to 20 to 30% relief but the pain did return. She has pain in her low back area with radiation into her hips and lower extremities bilaterally. She did try bilateral SI joint injections prior to the lumbar epidural steroid injection and got no relief. Patient is very tearful today. She is unable to stand, walk, or sit or lie down for prolonged periods. She has tried conservative therapies of physical therapy for more than 6 weeks and home stretching. She has tried anti-inflammatories with minimal relief. She is not an oral opiate candidate, as she is on buprenorphine. The patient is not a neurosurgical candidate at this point. She has tried all conservative therapies. She continues to have significant pain that is affecting her quality of life at this point. She would like to proceed with possible spinal cord stimulation trial. Review of Systems General: No recent weight changes, no fever, no sleep disturbances Respiratory: No cough, no shortness of air, no recurring pulmonary infections Cardiovascular/peripheral vascular: No chest pain, no palpitations, no edema, no shortness of breath Gastrointestinal: No new onset incontinence, normal bowel movements reported Genitourinary: No new onset incontinence Musculoskeletal: Low back pain with radiation into bilateral hips and legs Psychiatric: [Normal mood/affect] Neurological: [Denies weakness in extremities], [denies balance issues] Objective:: Physical exam General: Alert and oriented x3, no acute distress, pleasant and cooperative Lungs: Respirations even and unlabored, symmetrical chest expansion Eyes: PERRL Musculoskeletal: Flexion and extension of lumbar [spine] somewhat guarded secondary to pain, [antalgic gait noted] Neurological: Speech clear, no gross sensory deficit Assessment:: Degenerative disc disease lumbar spine with lumbar radiculopathy symptoms Plan:: Patient is following up after her lumbar epidural steroid injection. She got minimal relief. She has tried bilateral SI injections with minimal relief. She has tried physical therapy for more than 6 weeks along with continued home stretching and anti-inflammatories. She has not gotten any long-term relief with conservative therapies. Patient is not considered a neurosurgical candidate at this time. She is not a candidate for oral opiates, as she is on buprenorphine. She is very tearful today. We have discussed possible spinal cord stimulation. She would like to try this. We will schedule her for psychological evaluation for possible spinal cord stimulation. We will plan to see her back after her psychological evaluation and plan for trial if successful psychological evaluation. Patient has been instructed to contact the clinic with any concerns before the next appointment. Dr. Lin has reviewed this note and agrees with this plan of care. This note was dictated using voice recognition software and make contain errors or omissions. [facility] History I have reviewed the patient's past medical history: Yes Medical History: Reports:: Anxiety, Asthma, Coronary Artery Disease, Depression, Gastroesophageal Reflux Disease(GERD), Hypertension, Migraine, Palpitations Denies:: Cancer, Diabetes Mellitus Type 1, Diabetes Mellitus Type 2, Internal Pacemaker, MRSA, Seizures *Have you ever received a pneumonia vaccine?: No *Have you received a flu vaccine this season?: No Other Medical History: Reports: Fibromyalgia Laterality Cases: Right: Total Hip Replacement Other Surgeries: Yes: No Previous Surgery, Appendectomy, Cardiac Catheterization, Cholecystectomy, Colonoscopy, , Tubal Ligation, Other (laparoscopy for abd adheasions). No: Pacemaker Amputation: No Fractures
== END ==
PROVIDERS: Visit Provider Clinical Nurse Specialist Family Health
DX: M51.16 Intervertebral disc disorders with radiculopathy, lumbar region (principal)
CPT/HCPCS: 99212; G0463

== ENCOUNTER → 2021-12-27 09:06 | Outpatient (CLI) | payer BC, SELFPAY ==
[2021-12-27 09:54] LABS: Basophils # 0.1 K/mm3 (0-0.2); Basophils % 1.5 % (0.1-2.0); Eosinophils # 0.2 K/mm3 (0.0-0.4); Eosinophils % 1.7 % (0.1-12.0); Hematocrit 38.3 % (37.0-47.0); Hemoglobin 12.9 g/dL (12.2-16.2); Lymphocytes # 4.7 K/mm3 (0.7-4.5); Lymphocytes % 48.9 % (10-50); Mean Corpuscular HGB Conc 33.7 g/dL (31.8-35.4); Mean Corpuscular Hemoglobin 30.2 pg (27.0-31.2); Mean Corpuscular Volume 89.4 fl (81-99); Mean Platelet Volume 7.2 fl (7.4-10.4); Monocytes # 0.3 K/mm3 (0.1-1.0); Monocytes % 3.4 % (1.7-9.3); Neutrophils # 4.3 K/mm3 (1.8-7.8); Neutrophils % 44.5 % (37.0-80.0); Platelet Count 377 K/mm3 (142-424); Red Blood Count 4.28 M/mm3 (4.20-5.40); Red Cell Distribution Width 13.7 % (11.5-17.5); White Blood Count 9.6 K/mm3 (4.8-10.8)
[2021-12-27 17:26] LABS: Chloride 105 mmol/L (98-107); Potassium 4.2 mmoL/L (3.5-5.1); Sodium 139 mmol/L (136-145)
[2021-12-27 17:29] LABS: Anion Gap 12.2 mEq/L (5-15); Blood Urea Nitrogen 9 mg/dl (7-17); Carbon Dioxide 26 mmol/L (22.0-30.0); Estimated Glomerular Filt Rate 106 ml/min (>60); GFR (African American) 129 ML/MIN (>60); Glucose 102 mg/dl (74-100)
[2021-12-27 17:30] LABS: Calcium 8.2 mg/dl (8.4-10.2)
== END ==
PROVIDERS: Visit Provider Anesthesiology
DX: Z01.812 Encounter for preprocedural laboratory examination (principal); Z11.52 Encounter for screening for COVID-19; M51.36 Other intervertebral disc degeneration, lumbar region
CPT/HCPCS: 36415; 80048; 85025; C9803; U0003; U0005

== ENCOUNTER 2021-12-28 11:01 | Day surgery (SDC) | payer BC, SELFPAY ==
[2021-12-28] VITALS (8 sets, daily range): BP systolic 92–151; BP diastolic 56–83; PULSE 59–77; RESP 16–18; TEMP 36.2–36.6; O2SAT 96–98; BMI 36.0
[2021-12-28 06:32] LABS: HCG Qualitative, Serum Negative (Negative)
--- NOTE | 2021-12-28 15:46 | P.OP_ITS ---
Date of procedure: 12/28/21 Pre-op Diagnosis:: Degenerative disc disease of lumbar spine with lumbar radiculopathy symptoms Post-op Diagnosis:: Same Procedure performed:: Spinal cord stimulator trial with epidural lead placement x2 Surgeon:: Owen Lin MD PARKING CONTROL OFFICER:: Juve Jones Anesthesia: MAC Estimated blood loss (mL): 1 Clinical Note:: This patient is a pleasant 51-year-old white female who we are treating for low back pain with lumbar radiculopathy symptoms. Most of her pain is in the low back she does have some radicular symptoms. She has failed all previous conservative therapy including injections, oral medications, physical therapy and she is not an operative candidate. She has had a successful psychological evaluation. She presents for spinal cord stimulator trial today. Operative findings:: None Operative note:: Informed consent was obtained the risk and benefits of the procedure were explained to the patient. Patient was taken the operating room placed prone on the procedure table. She was prepped and draped in sterile fashion. C-arm fluoroscopy was used to view the lumbar spine. The skin and subcutaneous tissues were anesthetized using lidocaine. A 17-gauge epidural needle was inserted and advanced into the L1-L2 interspace. After confirmation needle placement in the epidural space stimulator lead was inserted and advanced very easily to the T7-T8-T9 vertebral body. A second needle was inserted advanced again into the L1-L2 interspace. Again after confirmation needle placement in the epidural space a second stimulating lead was inserted and advanced again very easily to the T7-T8-T9 vertebral body. Leads were checked in AP and lateral views. The leads were secured in place after removal of the stylets and needles. Patient was then taken recovery in stable condition. Patient tolerated the procedure well with no complications. Patient was programmed by the [employer] sales donor recruitment representative with good stimulation in all areas of pain. Patient was then discharged home neurologically intact with good relief of her pain symptoms. Plan and disposition: We will follow-up with this patient in 1 week for lead pull. We will continually follow-up with her each day and reprogram as needed. If she has any problems or questions she is to call us back in the pain clinic. Condition: stable Disposition: PACU Complications:: None
== END 2021-12-28 16:15 | disposition home or self-care (01) ==
LOC: OR 11:04
PROVIDERS: PCP Nurse Practitioner Family; Visit Provider Anesthesiology
PROC: (CPT 63650; principal; 2021-12-28 12:45)
DX: M51.16 Intervertebral disc disorders with radiculopathy, lumbar region (principal); E78.5 Hyperlipidemia, unspecified; I10 Essential (primary) hypertension; Z72.0 Tobacco use; Z82.49 Family history of ischemic heart disease and other diseases of the circulatory system; Z88.8 Allergy status to other drugs, medicaments and biological substances; Z79.899 Other long term (current) drug therapy
CPT/HCPCS: 63650; 84703; 96374; C1778

== ENCOUNTER → 2022-01-03 14:48 | Outpatient (POV) | payer BC, SELFPAY ==
[2022-01-03 14:57] VITALS: BP 121/76; PULSE 100; RESP 18; TEMP 36.4; O2SAT 96; BMI 36.0
--- NOTE | 2022-01-03 15:09 | HMH.PAINSOAP ---
[facility] Pain Management SOAP Note Subjective:: Patient is a pleasant 51-year-old female who presents today for a 1 week follow-up after her spinal cord stimulator trial. Patient is currently being treated for degenerative disc disease lumbar spine with lumbar radiculopathy symptoms. [employer] senior outside sales representative is here today to help with some evaluation and reprogramming. After trial, patient had significant relief about 80 to 90%. Patient reports no issues after the trial. Patient states that she was able to increase her activity during the trial. Patient has tried and failed conservative therapies such as oral medication, physical therapy, and at home exercise regimen 6 weeks. She is not an oral opiate candidate because she is on buprenorphine. She is also a nonsurgical candidate. Rates her pain today as 5 out of 10. ORT score is high Review of Systems: General: No recent weight changes, no fever, no sleep disturbances Respiratory: No cough, no shortness of air, no recurring pulmonary infections Cardiovascular/peripheral vascular: No chest pain, no palpitations, no edema, no shortness of breath Gastrointestinal: No new onset incontinence, normal bowel movements reported Genitourinary: No new onset incontinence Musculoskeletal: Low back pain Psychiatric: [Normal mood/affect] Neurological: [Denies weakness in extremities], [denies balance issues] Objective:: Physical Exam: General: Alert and oriented x3, no acute distress, pleasant and cooperative, [on room air] Lungs: Respirations even and unlabored, symmetrical chest expansion Eyes: PERRL Musculoskeletal: Flexion and extension of lumbar [spine] somewhat guarded secondary to pain, [antalgic gait noted] Neurological: Speech clear, no gross sensory deficit Assessment:: Degenerative disc disease of lumbar spine with lumbar radiculopathy symptoms Plan:: Patient had significant relief during her trial and was able to increase her activity. The [employer] senior outside sales representative says that she was able to reprogram and had good coverage. Patient denies any issues with the spinal cord stimulator. She says that she wants to think about whether she wants to move forward with a permanent placement. We will follow up with her in 1 week to see how she feels. Again, due to her history, we will not provide this patient with any oral opioid medications. Patient has been instructed to contact the clinic with any concerns before the next appointment. Dr. Lin has reviewed this note and agrees with this plan of care. This note was dictated using voice recognition software and make contain errors or omissions. [facility] History Medical History: Reports:: Anxiety, Asthma, Coronary Artery Disease, Depression, Gastroesophageal Reflux Disease(GERD), Hypertension, Migraine, Palpitations Denies:: Cancer, Diabetes Mellitus Type 1, Diabetes Mellitus Type 2, Internal Pacemaker, MRSA, Seizures *Have you ever received a pneumonia vaccine?: Yes *Have you received a flu vaccine this season?: Yes Other Medical History: Reports: Fibromyalgia. Denies: Blood Transfusion Reaction Laterality Cases: Right: Total Hip Replacement Other Surgeries: Yes: No Previous Surgery, Appendectomy, Cardiac Catheterization, Cholecystectomy, Colonoscopy, , Tubal Ligation, Other (laparoscopy for abd adheasions). No: Pacemaker Amputation: No Fractures: Yes (HIP) - *Social History Smoking Status: Never smoker # Packs/Day (cigarettes): 1 Alcohol Intake: never Alcohol Intake Frequency:: other Substance Use Type: former substance user, marijuana, heroin, crack/cocaine *Occupational Status:: employed Housing: house Household Members: none *Travel in the last 8 weeks: None - Psychiatric History Pschychiatric History:: Reports:: Anxiety, Depression Family Hx:: Stroke, Heart Attack, Diabetes, Cancer, Hypertension, Hyperlipidemia, Asthma, Coronary Artery Disease
== END ==
PROVIDERS: Visit Provider Student in an Organized Health Care Education/Training Program
DX: M51.16 Intervertebral disc disorders with radiculopathy, lumbar region (principal)
CPT/HCPCS: 99213; G0463

== ENCOUNTER → 2022-03-15 05:49 | Outpatient (CLI) | payer BC, SELFPAY ==
--- NOTE | 2022-03-15 | CA_ITS ---
APPROVED REPORT Exam: Exercise Treadmill Technologist: Gloria Mcgowan, Ht: 5 ft 4 in Wt: 201 lbs BSA: 1.96 m2 HR: 67 bpm BP: 143/86 mmHg Rhythm: NSR,LOW VOLTAGE QRS Medical History Medical History: HTN Medications: Lisinopril,,,,, Atenolol,,,,, Ferrous sulfate,,,,, Vit D3,,,,, Famotidine,,,,, DulOXETINE,,,,, LoraTADINE,,,,, Fluoxetine,,,,, AmTRIPTYLINE,,,,, BuPRen-NALOXONE,,,,, Allergies: METRONIDAZOLE Cardiac Risk Factors: HTN, FHX of CAD Stress Test Details Test: Rigo HR Resting HR: 74 bpm Max Heart Rate (APMHR): 170.362830 bpm Max HR Achieved: 141 bpm Target HR (85% APMHR): 144.631097 bpm % of APMHR: 82.94 Recovery HR: 114 bpm BP Resting BP: 143.0/86.0 mmHg Max BP: 204.0/117.0 mmHg Recovery BP: 204.0/117.0 mmHg ECG Resting ECG: NSR,LOW VOLTAGE QRS Clinical Exercise duration: 04:32 min Highest Stage Achieved: Exercise capacity: 7.0 METs Stress ECG Conclusion PATIENT EXERCISED 4:32 INTO STAGE II OF RIGO PROTOCOL. MAX HEART RATE 141 BPM WHICH IS 83% OF PM FOR AGE. MAX BP 204/117. METS = 7.0. TEST STOPPED DUE TO SOA. DURING TEST PATIENT HAD SOA,ANXIETY AND MILD CHEST TIGHTNESS. NO ARRHYTHMIAS/ECTOPY. NORMAL ST RESPONSE TO EXERCISE FOR THE HR ACHIEVED. NORMAL STRESS ECG'S WITH MILD CHEST TIGHTNESS ANXIETY. BLUNTED HR RESPONSE ON ATENOLOL. MYOVIEW IMAGES REPORTED SEPARATELY. Electronically signed by : Wicho Santana MD 03/15/2022 20:45:20
--- NOTE | 2022-03-15 05:50 | CA_ITS ---
APPROVED REPORT EXAM: Comprehensive 2D, Doppler, and color-flow Echocardiogram Mechanic Marine Engine: JACKSON Tucker, RVS Ht: 5 ft 4 in Wt: 201lbs BSA: 1.96 BP: 124/92 mmHg Indications: SOB, CAD, ABN EKG, HTN, SMOKER, HLD, ASTHMA, GERD 2D Dimensions Aortic Root 2.54 cm LA Volume 43.50 mL Left Atrium 3.55 cm LA Volume Index 22.20 mL/m2 (M/F) 16-34 LVOT 2.15 cm (M/F) 1.5-2.5 M-Mode Dimensions RVDd 2.07 cm (0.9-2.6) LA Diam 3.47 cm (1.9-4.0) LVDd 4.97 cm (3.5-5.7) Ao Diam 2.45 cm (2.0-3.7) LVDs 3.36 cm (3.5-5.7) IVSd 0.97 cm (0.6-1.1) PWd 0.72 cm (0.6-1.1) EF (Teich) 60.50% EPSs 0.46 cm FS 32.40% EDV (Teich) 116.60 mL TAPSE 1.93 (<1.7) ESV (Teich) 46.10 mL LV Diastology E Decel Time 203.00 (160-240 msec) E/A Ratio 2.12 MED E' 7.20 (< 7 cm/sec) MED A' 4.70 cm/s E'/MED E' Ratio 12.35 (>14) LAT E' 13.50 (<10 cm/sec) LAT A' 8.60 cm/s E/LAT E' Ratio 6.59 (>14) Aortic Valve LVOT Max 112.00 (70-110 cm/s) LVOT VTI 23.02 cm AoV Peak Karlos. 140.00 (50-130 cm/s) AO Peak GR. 7.90 mmHg AO Mean GR. 4.00 (<5 mmHg) AO VTI 25.05 (18-25 cm) GERALD (VTI) 3.34 (2.5-4.5 cm2) Mitral Valve MV A Velocity 42.00 (40-130 cm/s) E/A Ratio 2.12 MV Decel. Time 203.00 (160-240 ms) Pulmonary Valve PV Peak Velocity 97.00 (50-150 cm/s) Tricuspid Valve TR P. Velocity 198.00 cm/s RAP Estimate 10.00 mmHg RVSP 25.70 mmHg Left Ventricle Left atrium is normal size, left ventricle is normal size, there is no concentric left ventricular hypertrophy, estimated ejection fraction 55% with no regional wall motion abnormality, diastolic parameters are within normal range. Right Ventricle Right atrium and right ventricle are normal size and contractility. Aortic Valve Aortic valve is grossly normal, there is no aortic stenosis or aortic insufficiency. Mitral Valve Mitral valve grossly normal, there is trace mitral regurgitation. Tricuspid Valve Tricuspid grossly normal, there is trace tricuspid regurgitation, tricuspid regurgitation jet velocity is inadequate for calculation of the right ventricular systolic pressure. Pulmonic Valve Pulmonic valve is poorly visualized. Great Vessels Aortic root is normal size. Inferior vena cava normal size with normal spectral collapse. Pericardium No significant pericardial effusion noted. Conclusion 1. Normal left ventricular size preserved left ventricular systolic function, estimated ejection fraction 55% with no regional wall motion abnormality, diastolic parameters are within normal range. 2. Trace mitral and tricuspid regurgitation. 3. No significant pericardial effusion. 4. Inferior vena cava is normal size with normal inspiratory collapse. Electronically signed by : Wicho Santana MD 03/15/2022 19:35:32
--- NOTE | 2022-03-15 06:32 | NM_ITS ---
APPROVED REPORT Exam: Nuclear Stress Test Indication: Chest pain, Abnormal EKG, HTN, CAD, Former tobacco use, Family history Patient Location: Outpatient Stress Tech: Gloria Mcgowan PA Tech:Gina Major, ARRT, RT (R)(N) Ht: 5 ft 4 in Wt: 203 lbs Bra Size: 36C HR: 74 bpm BP: 143/86 mmHg BSA: 1.97 m2 TID: 1.09 BMI: 34.8 History: Chest pain, Abnormal EKG, HTN, CAD, Former tobacco use, Family history Procedure: Patient exercised on Ulises protocol 4:32 minutes and sec, resting heart rate 74 bpm, resting blood pressure 143/86 mmHg, with exercise maximum heart rate achived was 141 bpm which is 83 % of the maximum predicted heart rate and blood pressure was 204/117 mmHg. Test was stopped due to SOA. Patient has Adequate exercise capacity, achieved 7.0 METs of workload on treadmill, the blood pressure response to exercise was Hypertensive. Electrocardiogram Resting electrocardiogram shows sinus rhythm, with exercise there is less than 1.[address] segment depression noted from the baseline EKG. The EKG portion of the exercise Myoview was nondiagnostic as patient did not achieve the target heart rate. Cardiac Stress and Resting SPECT Images: Cardiac Stress and Resting SPECT images were obtained using technetium 99m Myoview 30.0 mCi stress and 10.28 mCi at rest. Gated SPECT analysis of segmental wall motion and calculation of the ejection fraction also done. Cardiac stress and rest respiratory show uniform myocardial activity without segmental perfusion abnormality, computer derived ejection fraction is 64% with no regional wall motion abnormality, right ventricle is normal size and contractility. Conclusion: 1. The EKG portion of the exercise Myoview was nondiagnostic as patient did not achieve the target heart rate, patient has adequate exercise capacity achieved 7 METS of workload on treadmill, the blood pressure response to exercise was hypertensive, patient complained of chest tightness with exercise. 2. No scintigraphic evidence of reversible ischemia seen at this level of exercise, computer derived ejection fraction is 64% with no regional wall motion abnormality, right ventricle is normal size and contractility. Electronically signed by : Wicho Santana MD 03/15/2022 20:48:11
--- NOTE | 2022-03-15 08:53 | HMH.ITSHM ---
Current Home Medications as stated by this patient Louise Jones or aircraft sales representative. []LORATADINE LISINOPRIL FLUOXETINE IRON FAMOTIDINE DULOXETINE ATENOLOL AMITRIPTYLINE VITAMIN D3
== END ==
PROVIDERS: PCP Nurse Practitioner Family; Visit Provider Nurse Practitioner Family
DX: R06.02 Shortness of breath (principal); R06.01 Orthopnea; I10 Essential (primary) hypertension; E78.5 Hyperlipidemia, unspecified; R94.31 Abnormal electrocardiogram [ECG] [EKG]; F17.200 Nicotine dependence, unspecified, uncomplicated; Z82.49 Family history of ischemic heart disease and other diseases of the circulatory system
CPT/HCPCS: 78452; 93017; 93306; A9502

== ENCOUNTER → 2022-05-03 14:16 | Outpatient (CLI) | payer BC, SELFPAY ==
[2022-05-03 15:04] LABS: Blood Urea Nitrogen 9 mg/dl (7-17); Calcium 9.1 mg/dl (8.4-10.2); Carbon Dioxide 28 mmol/L (22.0-30.0); Chloride 106 mmol/L (98-107); Estimated Glomerular Filt Rate 106 ml/min (>60); GFR (African American) 128 ML/MIN (>60); Glucose 107 mg/dl (74-100); Sodium 139 mmol/L (136-145)
== END ==
PROVIDERS: PCP Nurse Practitioner Family; Visit Provider Physician Assistant
DX: I25.10 Atherosclerotic heart disease of native coronary artery without angina pectoris (principal)
CPT/HCPCS: 36415; 80048

== ENCOUNTER → 2023-01-31 13:09 | Outpatient (CLI) | payer BC, SELFPAY ==
--- NOTE | 2023-01-31 13:13 | MM_ITS ---
PROCEDURE INFORMATION: Exam: MG Bilateral Screening 3D Mammography MG Radiologist Consultation Exam date and time: 01/31/2023 1:09 PM Age: 52 years old Clinical indication: Screening examination . Family history of breast carcinoma. TECHNIQUE: Imaging protocol: Bilateral Screening tomosynthesis and 2D mammography including computer-aided detection (CAD) when performed. COMPARISON: 1. MG MM DIG SCREENING MAMM BI W/CAD 01/01/2021 3:46 PM 2. MG DMDXUL DIG MAMM-DX UNI-LT W/CAD 09/07/2017 1:11 PM 3. MG DMSB DIG MAMM-SCREEN PATRICK W/CAD 03/06/2017 4:33 PM FINDINGS: MAMMOGRAPHY: Breast composition: There are scattered areas of fibroglandular density. Mass: No suspicious masses. Architectural distortion: No suspicious distortion. Calcifications: No suspicious calcifications. Asymmetric density: None. Skin thickening: None. Axillary adenopathy: None. IMPRESSION: 1. No mammographic evidence of malignancy. Annual screening is recommended unless otherwise clinically indicated. 2. Given the reported risk factors for this patient, a breast cancer risk assessment may prove useful for further evaluation. ASSESSMENT: BI-RADS Category 1: Negative
== END ==
PROVIDERS: PCP Nurse Practitioner Family; Visit Provider Nurse Practitioner Family
DX: Z12.31 Encounter for screening mammogram for malignant neoplasm of breast (principal)
CPT/HCPCS: 77063; 77067

== ENCOUNTER 2023-02-06 21:44 | Emergency (ER) | payer BC, SELFPAY ==
[2023-02-06 21:45] VITALS: BP 129/86; PULSE 100; RESP 16; TEMP 36.7; O2SAT 96; BMI 35.2
--- NOTE | 2023-02-07 01:14 | HMH.EDSKAF ---
Discharge Plan Disposition Patient Disposition: Home, Self-Care Condition: Good Prescriptions Prescriptions: New methylprednisolone [Medrol] 8 mg tablet 8 mg PO BID Qty: 20 0RF diphenhydramine HCl [Benadryl] 25 mg capsule 25 mg PO Q6H PRN (Reason: allergy symptoms) Qty: 20 0RF No Action atenolol 25 mg tablet 25 mg PO DAILY Slow Fe 142 mg (45 mg iron) tablet extended release 142 mg PO DAILY omega-3 fatty acids-fish oil [Fish Oil] 360-1,200 mg capsule 1 cap PO DAILY loratadine 10 mg tablet 10 mg PO DAILY amitriptyline 25 mg tablet 25 mg PO DAILY duloxetine 30 mg capsule,delayed release(DR/EC) 30 mg PO DAILY famotidine 20 mg tablet 20 mg PO DAILY buprenorphine-naloxone 8-2 mg tablet, sublingual 1 tab SL BID fluoxetine [Prozac] 40 mg capsule 40 mg PO DAILY Qty: 30 1RF furosemide [Lasix] 20 mg tablet 20 mg PO DAILY Qty: 90 3RF cholecalciferol (vitamin D3) 5,000 UNIT capsule See Rx Instructions .Route .COMPLEX Rx Instructions: TAKE 1 CAPSULE BY MOUTH ONCE DAILY lisinopril 20 MG tablet See Rx Instructions .Route .COMPLEX Rx Instructions: Take 1 tablet by mouth once daily for blood pressure Referrals Follow up/Referrals: Princess Guo APRN [Primary Care Provider] - See instructions Activity Restrictions/Add. Instructions Additional Instructions/Restrictions: Finish steroid, continue Benadryl 25 mg every 4-6 hours as needed itching and take your Pepcid twice a day for the next 10 days for the allergic reaction. Clinical Impressions Clinical Impression: Allergic reaction Instructions Patient Instructions: DI for Skin Abscess Discharge ED Provider: Nya Johnson Skin/Abscess/FB HPI General Chief complaint: Skin/Abscess/Foreign Body Stated complaint: Possible insect bit Time Seen by Provider: 02/07/23 00:29 Mode of Arrival: Ambulatory Source of Information: Patient Limitations: No Limitations Description of Symptoms (Recalled from ER Triage Doc. by RN): pt c/o bug bites to rt arm History of Present Illness HPI narrative: Patient was at work and she is a size 8. Patient stated that she got an contact with something and rash started in her shoulders and goes down both arms and to her neck and to her upper lip. Patient stated is itching everywhere. It has not gone to her chest abdomen back or lower extremity. Patient stated her lips feel slightly swollen. She has no difficulty swallowing difficulty breathing or stridor. She does have asthma but she is not short of breath or wheezing. She does not recall what she got into the cause of allergic reaction. She was at work when this happened. She took a Benadryl at 12:00 in the afternoon and then at 4. She just came straight from work here. Onset (ago): hour(s) Location: face, LUE and RUE Severity: moderate Quality: pruritic Consistency: constant Relieving factors: none Exacerbating factors: none Context: none Associated symptoms: denies other symptoms Treatments prior to arrival: Benadryl Related Data Home Medications Medication Instructions Recorded Confirmed cholecalciferol (vitamin D3) 125 See Rx Instructions .Route 03/11/19 11/08/22 mcg (5,000 unit) capsule .COMPLEX Supplement atenolol 25 mg tablet 25 mg PO DAILY High blood pressure 02/01/21 11/08/22 lisinopril 20 mg tablet See Rx Instructions .Route 05/03/21 11/08/22 .COMPLEX High blood pressure amitriptyline 25 mg tablet 25 mg PO DAILY 03/02/22 11/08/22 buprenorphine 8 mg-naloxone 2 mg 1 tab sublingual BID 03/02/22 11/08/22 sublingual tablet duloxetine 30 mg capsule,delayed 30 mg PO DAILY 03/02/22 11/08/22 release famotidine 20 mg tablet 20 mg PO DAILY 03/02/22 11/08/22 ferrous sulfate 142 mg (45 mg 142 mg PO DAILY 03/02/22 11/08/22 iron) tablet,extended release (Slow Fe) loratadine 10 mg tablet 10 mg PO DAILY 03/02/22 11/08/22 omega-3 fatty acids-fish oil 360 1 cap PO DAILY 06
[2023-02-07 01:17] VITALS: BP 115/78; PULSE 91; RESP 16; TEMP 36.6; O2SAT 97
== END 2023-02-07 01:21 | disposition home or self-care (01) ==
PROVIDERS: Emergency Provider Emergency Medicine; PCP Nurse Practitioner Family
DX: T78.40XA Allergy, unspecified, initial encounter (principal); L29.9 Pruritus, unspecified
CPT/HCPCS: 96372; 99283; 99284

== ENCOUNTER → 2023-07-21 14:38 | Outpatient (CLI) | payer BC, SELFPAY | PROVIDERS: PCP Nurse Practitioner Family; Visit Provider Nurse Practitioner Family | DX: J45.909 Unspecified asthma, uncomplicated (principal) | CPT/HCPCS: 94060 ==

== ENCOUNTER → 2024-01-03 19:55 | Outpatient (CLI) | payer BC, SELFPAY | LOC: SL 19:57 | PROVIDERS: PCP Nurse Practitioner Family; Visit Provider Nurse Practitioner Family | DX: G47.33 Obstructive sleep apnea (adult) (pediatric) (principal); G47.37 Central sleep apnea in conditions classified elsewhere | CPT/HCPCS: 95810 ==

== ENCOUNTER 2024-01-24 15:01 | Outpatient (CLI) | payer BC, SELFPAY ==
[2024-01-24 16:35] LABS: Ferritin 57.9 ng/ml (11.1-264)
== END 2024-01-24 23:59 | disposition home or self-care (01) ==
LOC: LAB 15:02
PROVIDERS: PCP Nurse Practitioner Family; Visit Provider Specialist
DX: E83.10 Disorder of iron metabolism, unspecified (principal)
CPT/HCPCS: 36415; 82728

== ENCOUNTER 2024-01-29 21:01 | Emergency (ER) | payer BC, SELFPAY ==
[2024-01-29] VITALS (8 sets, daily range): BP systolic 99–135; BP diastolic 62–88; PULSE 75–109; RESP 13–22; TEMP 36.9; O2SAT 96–98; BMI 36.3
--- NOTE | 2024-01-29 21:38 | ED_ITS ---
Discharge Plan Disposition Patient Disposition: Home, Self-Care Condition: Good Prescriptions Prescriptions: New epinephrine 0.3 mg/0.3 mL auto-injector 0.3 mg IM Q10M PRN (Reason: anaphylaxis) Qty: 2 0RF Rx Instructions: for 2 doses No Action atenolol 25 mg tablet 25 mg PO DAILY Slow Fe 142 mg (45 mg iron) tablet extended release 142 mg PO DAILY omega-3 fatty acids-fish oil [Fish Oil] 360-1,200 mg capsule 1 cap PO DAILY loratadine 10 mg tablet 10 mg PO DAILY famotidine 20 mg tablet 20 mg PO DAILY buprenorphine-naloxone 8-2 mg tablet, sublingual 1 tab SL BID amitriptyline 25 mg tablet 50 mg PO DAILY duloxetine 30 mg capsule,delayed release(DR/EC) 60 mg PO DAILY montelukast [Singulair] 10 mg tablet 10 mg PO DAILY metformin 500 mg tablet extended release 24 hr PO DAILY lurasidone 60 mg tablet 60 mg PO HS rosuvastatin 20 mg tablet 20 mg PO ONCE albuterol sulfate 90 mcg/actuation HFA aerosol inhaler 2 puff inhalation Q8H polyethylene glycol 3350 17 gram/dose powder 17 g PO DAILY Horizant 600 mg tablet extended release 600 mg PO HS Qty: 30 5RF Rx Instructions: administer daily at approximately 5 PM with food/evening meal furosemide [Lasix] 20 mg tablet 20 mg PO DAILY Qty: 90 3RF cholecalciferol (vitamin D3) 5,000 UNIT capsule See Rx Instructions .Route .COMPLEX Rx Instructions: TAKE 1 CAPSULE BY MOUTH ONCE DAILY lisinopril 20 MG tablet See Rx Instructions .Route .COMPLEX Rx Instructions: Take 1 tablet by mouth once daily for blood pressure diphenhydramine HCl [Benadryl] 25 mg capsule 25 mg PO Q6H PRN (Reason: allergy symptoms) Qty: 20 0RF Referrals Follow up/Referrals: Princess Guo APRN [Primary Care Provider] - See instructions Activity Restrictions/Add. Instructions Additional Instructions/Restrictions: You have been evaluated in the ED for your complaints. You may follow-up with your PCP in the next 3 to 5 days. Please return to ED for any new or worsening symptoms. I have written for prescription for an EpiPen to use in the event that she may have another anaphylactic reaction. Also recommend giving Benadryl at home. Please follow-up with your PCP to have referral for allergy testing. Clinical Impressions Clinical Impression: Anaphylactic reaction, Urticarial rash, Nausea, Shortness of breath Instructions Patient Instructions: Anaphylaxis Discharge ED Provider: Antonio Barajas Adult HPI General Chief complaint: Allergic Reaction Stated complaint: Right arm and back red and swollen,SOA Time Seen by Provider: 01/29/24 21:35 Mode of Arrival: Ambulatory Source of Information: Patient Limitations: No Limitations Description of Symptoms (Recalled from ER Triage Doc. by RN): 53 F presents from home with what appears to be an anxiety attack after being bit by a bug astridatley 30 minutes ago. Patient states she took a Benadryl after this happened. Airway is patent. Patient does appear to have hives on her back from severe scratching. History of Present Illness HPI narrative: 53-year-old female with past medical history significant for anxiety, depression, HLD, HTN, history of allergic reaction, presents today for evaluation concerning possible allergic reaction onset prior to arrival. Patient states that she was walking her dog when she felt a sting on her right shoulder. She states that she began to have an itchy like sensation and developed hives diffusely. She also states that she became nauseated and had shortness of breath and felt as if her throat was closing up at that time. She took 25 mg of Benadryl prior to arrival. Denies any chest pain, emesis, diarrhea or any other associated symptoms at this time. Related Data Home Medications Medication Instructions Recorded Confirmed cholecalciferol (vitamin D3) 125 See Rx Instructions .Route 03/11/19 01/24/24 mcg (5,000 unit) capsule .COMPLEX Supplement atenolol 25 mg tablet 25 mg PO DAILY High blood pressure 02/01/21 01/24/24 lisinopril 20 mg tablet See Rx Instructions .Route 05/03/21 01/24/24 .COMPLEX High blood pressure buprenorphine 8 mg-naloxone 2 mg 1 tab sublingual BID 03/02/22 01/24/24 sublingual tablet famotidine 20 mg tablet 20 mg PO DAILY 03/02/22 01/24/24 ferrous sulfate 142 mg (45 mg 142 mg PO DAILY 03/02/22 01/24/24 iron) tablet,extended release (Slow Fe) loratadine 10 mg tablet 10 mg PO DAILY 03/02/22 01/24/24 omega-3 fatty acids-fish oil 360 1 cap PO DAILY 03/02/22 01/24/24 mg-1,200 mg capsule (Fish Oil) albuterol sulfate 90 mcg/actuation 2 puff inhalation Q8H 08/17/23 01/24/24 aerosol inhaler amitriptyline 25 mg tablet 50 mg PO DAILY 08/17/23 01/24/24 duloxetine 30 mg capsule,delayed 60 mg PO DAILY 08/17/23 01/24/24 release lurasidone 60 mg tablet 60 mg PO HS 08/17/23 01/24/24 metformin 500 mg tablet,extended mg PO DAILY 08/17/23 01/24/24 release 24 hr montelukast 10 mg tablet 10 mg PO DAILY 08/17/23 01/24/24 (Singulair) polyethylene glycol 3350 17 17 g PO DAILY 08/17/23 01/24/24 gram/dose oral powder rosuvastatin 20 mg tablet 20 mg PO ONCE 08/17/23 01/24/24 Previous Rx's Medication Instructions Recorded diphenhydramine HCl 25 mg capsule 25 mg PO Q6H PRN allergy symptoms 02/07/23 (Benadryl) #20 caps furosemide 20 mg tablet (Lasix) 20 mg PO DAILY #90 tabs 08/03/23 gabapentin enacarbil 600 mg 600 mg PO HS RLS #30 tabs 01/24/24 tablet,extended release (Horizant ER) epinephrine 0.3 mg/0.3 mL 0.3 mg (0.3 mL) IM Q10M PRN 01/29/24 injection, auto-injector anaphylaxis #2 ea Allergies Allergy/AdvReac Type Severity Reaction Status Date / Time metronidazole [METRONIDAZOLE] Allergy Severe swelling Verified 01/24/24 13:45 of tongue [facility] Disclaimer: The information contained in this section may have been updated after the patient was seen, as this information can be updated by other users. Medical History (Updated 01/29/24 @ 23:12 by Antonio Barajas DO) Generalized anxiety disorder Major depressive disorder Surgical History (Updated 01/24/24 @ 14:14 by Ana María Toledo) History of appendectomy History of cholecystectomy History of hip replacement Family History Other Alcoholism Coronary artery disease Diabetes Heart attack Social History Smoking Status: Never smoker second hand exposure: Yes alcohol intake: never substance use type: former substance user, marijuana, crack/cocaine and heroin current occupational status: employed Travel in the last 8 weeks: None household members: none housing: house marital status: legally number of children: 3 current occupation: Nursing current occupational exposures/hazards: No caffeine: Yes ROS Obtained: Yes All systems reviewed & no additional complaints except as documented Physical Exam General General appearance: alert and in no apparent distress Head Head exam: atraumatic and normocephalic Eye Eye exam: Present normal appearance, PERRL and EOMI ENT ENT exam: Present normal oropharynx and mucous membranes moist Neck Neck exam: Present full ROM; Absent meningismus Respiratory Respiratory exam: Absent respiratory distress, wheezes, stridor or accessory muscle use Cardiovascular Cardiovascular exam: Present normal rhythm Abdominal Exam Abdominal exam: Present soft; Absent distention, tenderness, guarding, rebound or rigidity Neurological Exam Neurological exam: Present alert, oriented X3 and CN II-XII intact; Absent motor sensory deficit Psychiatric Psychiatric exam: Present normal affect and normal mood Skin Skin exam: Present warm, dry, rash (Diffuse urticarial rash located on back, abdomen, upper extremities. She is also diaphoretic.) and diaphoresis Medical Decision Making Medical Records Medical records reviewed: Yes I reviewed the patient's medical records. Ricci Inquiry Pt receiving controlled substance: No Ricci was queried for this patient: No Vital Signs: 01/29/24 21:03 01/29/24 21:39 01/29/24 21:42 Temperature 98.4 F Temperature Source Oral Pulse Rate 86 85 Pulse Rate [Left] 109 H Respiratory Rate 22 13 14 Blood Pressure 99/63 L 100/76 L Blood Pressure [Right Arm] 135/86 Blood Pressure Mean 80 83 Blood Pressure Mean [Right Arm] 102 Blood Pressure Source [Right Arm] Automatic Cuff Blood Pressure Position [Right Arm] Sitting 02 Sat by Pulse Oximetry 98 98 96 Oxygen Delivery Method Room Air Room Air Room Air 01/29/24 21:45 01/29/24 22:00 01/29/24 22:30 Temperature Temperature Source Pulse Rate 80 85 85 Pulse Rate [Left] Respiratory Rate 16 16 16 Blood Pressure 111/71 107/62 L 116/78 Blood Pressure [Right Arm] Blood Pressure Mean 90 77 90 Blood Pressure Mean [Right Arm] Blood Pressure Source [Right Arm] Blood Pressure Position [Right Arm] 02 Sat by Pulse Oximetry 98 96 97 Oxygen Delivery Method Room Air Room Air 01/29/24 23:00 01/29/24 23:39 Temperature Temperature Source Pulse Rate 78 75 Pulse Rate [Left] Respiratory Rate 13 19 Blood Pressure 127/88 99/67 L Blood Pressure [Right Arm] Blood Pressure Mean Blood Pressure Mean [Right Arm] Blood Pressure Source [Right Arm] Blood Pressure Position [Right Arm] 02 Sat by Pulse Oximetry 96 97 Oxygen Delivery Method Orders (Tests/Meds): ED MEDICATIONS Generic Name Dose Route Start Last Admin Trade Name Freq PRN Reason Stop Dose Admin Sodium Chloride 8 ml 01/29/24 21:47 Sodium Chloride 0.9% 10ml Vial IV 02/28/24 21:46 NEEDED PRN dilute pepcid Discontinued Medications Generic Name Dose Route Start Last Admin Trade Name Freq PRN Reason Stop Dose Admin Diphenhydramine HCl 25 mg 01/29/24 21:47 01/29/24 21:51 Diphenhydramine 50mg/Ml Vial IV 01/29/24 21:48 25 mg ONCE ONE Administration Epinephrine HCl 0.3 mg 01/29/24 21:46 01/29/24 21:50 Epinephrine 1 Mg/Ml Ampul IM 01/29/24 21:47 0.3 mg ONCE ONE Administration Famotidine 20 mg 01/29/24 21:47 01/29/24 21:51 Famotidine 20mg/2ml Vial IV 01/29/24 21:48 20 mg ONCE ONE Administration Methylprednisolone Sodium Succinate 125 mg 01/29/24 21:47 01/29/24 21:51 Methylprednisolone Sod Succ 125mg Vial IV 01/29/24 21:48 125 mg ONCE ONE Administration ORDERS Category Date Time Status CXR --portable [XR chest portable] Stat Exams 01/29/24 22:25 Completed Medical Decision Narrative: 53-year-old female with past medical history significant for anxiety, depression, HLD, HTN, history of allergic reaction, presents today for evaluation concerning possible allergic reaction onset prior to arrival. Patient states that she was walking her dog when she felt a sting on her right shoulder. She states that she began to have an itchy like sensation and developed hives diffusely. She also states that she became nauseated and had shortness of breath and felt as if her throat was closing up at that time. She took 25 mg of Benadryl prior to arrival. On assessment, the patient was medically stable and in no acute distress. Afebrile. Vital signs were appropriate however her heart rate was in the mid 90s. Chest was clear to station bilaterally without wheezing. She did have a diffuse urticarial rash on bilateral upper extremities, back and chest/abdomen. Oropharynx was clear with no oropharyngeal edema. Differential diagnoses include not limited to anaphylaxis, among others. Patient was given 25 mg of Benadryl, Pepcid, IV Solu-Medrol and IM epinephrine given that she has multisystem involvement. Also ordered for chest x-ray and on my informal interpretation it was without any acute cardiopulmonary disease processes. I did reassess patient after treatment and she stated that she felt much improved at this time. Hives have since resolved. Shortness of breath improved. She is no longer nauseated. I discussed current ED workup and clinical diagnosis of anaphylactic reaction. Will plan to monitor patient and discharge home at 2-hour jose ramon. Will send her home with prescription for EpiPen to use in the event that she has another anaphylactic reaction. Also instructed her to follow-up with PCP to schedule appointment with metal painter for testing. She verbalized understanding agreement plan. Provided with return precautions. She was subsequently discharged home hemodynamically stable and in no acute distress. Critical Care Critical Care Time Critical Care Time: No
[2024-01-29] MEDS: EPINEPHrine 1 MG/ML AMPUL 0.299999999999999989 MG IM (21:50)
[2024-01-29] MEDS: FAMOTIDINE 20MG/2ML VIAL 20 MG IV (21:51)
[2024-01-29] MEDS: METHYLPREDNISOLONE SOD SUCC 125MG VIAL 125 MG IV (21:51)
[2024-01-29] MEDS: diphenhydrAMINE 50MG/ML VIAL 25 MG IV (21:51)
--- NOTE | 2024-01-29 22:25 | XR_ITS ---
PROCEDURE INFORMATION: Exam: XR Chest Exam date and time: 01/29/2024 10:34 PM Age: 53 years old Clinical indication: Shortness of breath; Additional info: SOB TECHNIQUE: Imaging protocol: Radiologic exam of the chest. Views: 1 view. COMPARISON: CR [id number] XR chest portable 11/01/2017 5:35 PM FINDINGS: Lungs: Normal. Pleural spaces: Normal. No pleural effusion. No pneumothorax. Heart/Mediastinum: Normal. No cardiomegaly. Bones/joints: Unremarkable. IMPRESSION: No acute findings.
--- NOTE | 2024-01-29 22:35 | PC.NURSE ---
rounded on pt at this time pt given cup of ice water
--- NOTE | 2024-01-29 22:55 | PC.NURSE ---
Rounded on patient no complaints or needs at this time
--- NOTE | 2024-01-29 23:25 | PC.NURSE ---
rounded on pt at this time, pt given more ice water and assisted to bathroom
--- NOTE | 2024-01-29 23:41 | PC.NURSE ---
pt given more ice at this time
[2024-01-30 00:13] VITALS: BP 115/76; PULSE 81; RESP 18; TEMP 36.9; O2SAT 98
== END 2024-01-30 00:14 | disposition home or self-care (01) ==
PROVIDERS: Emergency Provider Emergency Medicine; PCP Nurse Practitioner Family
DX: T78.2XXA Anaphylactic shock, unspecified, initial encounter (principal); R06.02 Shortness of breath; L50.9 Urticaria, unspecified; R11.0 Nausea
CPT/HCPCS: 71045; 96372; 96374; 96375; 99284